=== PATIENT | male | born 1955 | race American Indian/Alaskan Native ===

== ENCOUNTER 2017-11-13 20:15 | Observation (INO) | payer OTHER, BC ==
[2017-11-13] MEDS ORDERED: ASPIRIN PO ONE (20:48)
[2017-11-13 20:59] LABS: Basophils # (Auto) 0.1 K/mm3 (0.0-0.1); Basophils % (Auto) 0.9 % (0.0-1.8); Eosinophils # (Auto) 0.1 K/mm3 (0.0-0.4); Eosinophils % (Auto) 1.2 % (0.0-4.3); Hematocrit 46.1 % (35.5-45.6); Hemoglobin 15.5 gm/dl (11.8-15.2); Lymphocytes # (Auto) 2.8 K/mm3 (1.2-5.4); Lymphocytes % (Auto) 44.3 % (13.4-35.0); Mean Corpuscular HGB Conc 34 % (32-34); Mean Corpuscular Hemoglobin 30 pg (28-32); Mean Corpuscular Volume 89 fl (84-94); Monocytes # (Auto) 0.6 K/mm3 (0.0-0.8); Monocytes % (Auto) 9.6 % (0.0-7.3); Platelet Count 213 K/mm3 (140-440); Red Blood Count 5.19 M/mm3 (3.65-5.03); Red Cell Distribution Width 14.6 % (13.2-15.2)
[2017-11-13 21:11] LABS: BUN/Creatinine Ratio 13; Blood Urea Nitrogen 10 mg/dL (9-20); Calcium 8.7 mg/dL (8.4-10.2); Hemolysis Index 14
--- NOTE | 2017-11-13 23:26 | XRay Report ---
FINAL REPORT PROCEDURE: XR CHEST ROUTINE 2V TECHNIQUE: PA and lateral chest radiographs were obtained. CPT 01631 HISTORY: SOB COMPARISON: No prior studies are available for comparison. FINDINGS: Heart: Normal. Mediastinum/Vessels: Normal. Lungs/Pleural space: Normal. Bony thorax: No acute osseous abnormality. Other: IMPRESSION: Normal examination.
[2017-11-14] MEDS: NITROSTAT SL PRN ×3 (03:50→04:04)
--- NOTE | 2017-11-14 04:07 | Emergency Department Report ---
ED Chest Pain HPI - General Chief Complaint: Chest Pain Stated Complaint: CP Time Seen by Provider: 11/14/17 03:16 Source: patient, family Mode of arrival: Ambulatory Limitations: No Limitations - History of Present Illness Initial Comments: 3 days of substernal chest pain. Intermittent. Exertional. Radiates down left arm. Feels lightheaded at times. It feels similar to his heart attack in December 2015. Patient has not had any recent cardiac testing. Former smoker. Multiple family members have had heart attacks. He last saw cardiology in July. He has 3 cardiac stents. Severity scale (0 -10): 10 - Related Data Previous Rx's Medication Instructions Recorded Last Taken Type Antacid [Alum-Mag Hydrox-Simeth 30 ml PO Q4H PRN #30 oral.liqd 01/17/16 Unknown Rx [id number]/[id number]] Aspirin [Aspirin TAB] 325 mg PO QDAY tablet 01/17/16 Unknown Rx AtorvaSTATin [Lipitor] 80 mg PO QHS #30 tablet 01/17/16 Unknown Rx Famotidine [Pepcid] 20 mg PO QDAY #30 tablet 01/17/16 Unknown Rx Lisinopril [Zestril TAB] 20 mg PO QDAY #30 tablet 01/17/16 Unknown Rx Metoprolol [Lopressor TAB] 25 mg PO BID #60 tablet 01/17/16 Unknown Rx Prasugrel [Effient] 10 mg PO QDAY #30 tablet 01/17/16 Unknown Rx Allergies Allergy/AdvReac Type Severity Reaction Status Date / Time No Known Allergies Allergy Unverified 01/15/16 12:28 Heart Score - HEART Score History: Moderately suspicious EKG: Normal Age: 45-65 Risk factors: > 3 risk factors or hx of atherosclerotic disease Troponin: < normal limit HEART Score: 4 ED Review of Systems ROS: Stated complaint: CP Other details as noted in HPI Comment: All other systems reviewed and negative Cardiovascular: chest pain ED Past Medical Hx - Past Medical History Previous Medical History?: Yes Hx Heart Attack/AMI: Yes Hx Congestive Heart Failure: No Hx Diabetes: No Hx Asthma: No Hx COPD: No Hx HIV: No - Surgical History Past Surgical History?: Yes Additional Surgical History: polyp removed, heart stents - Social History Smoking Status: Former Smoker Substance Use Type: Alcohol - Medications Home Medications: Home Medications Medication Instructions Recorded Confirmed Last Taken Type Antacid [Alum-Mag Hydrox-Simeth 30 ml PO Q4H PRN #30 oral.liqd 01/17/16 Unknown Rx [id number]/[id number]] Aspirin [Aspirin TAB] 325 mg PO QDAY tablet 01/17/16 Unknown Rx AtorvaSTATin [Lipitor] 80 mg PO QHS #30 tablet 01/17/16 Unknown Rx Famotidine [Pepcid] 20 mg PO QDAY #30 tablet 01/17/16 Unknown Rx Lisinopril [Zestril TAB] 20 mg PO QDAY #30 tablet 01/17/16 Unknown Rx Metoprolol [Lopressor TAB] 25 mg PO BID #60 tablet 01/17/16 Unknown Rx Prasugrel [Effient] 10 mg PO QDAY #30 tablet 01/17/16 Unknown Rx ED Physical Exam - General Limitations: No Limitations General appearance: alert, in no apparent distress - Head Head exam: Present: atraumatic, normocephalic - Eye Eye exam: Present: normal appearance - ENT ENT exam: Present: mucous membranes moist - Neck Neck exam: Present: normal inspection - Respiratory Respiratory exam: Present: normal lung sounds bilaterally. Absent: respiratory distress - Cardiovascular Cardiovascular Exam: Present: regular rate, normal rhythm. Absent: systolic murmur, diastolic murmur, rubs, gallop - GI/Abdominal GI/Abdominal exam: Present: soft, normal bowel sounds. Absent: distended, tenderness, guarding, rebound - Rectal Rectal exam: Present: deferred - Extremities Exam Extremities exam: Present: normal inspection. Absent: pedal edema - Back Exam Back exam: Present: normal inspection - Neurological Exam Neurological exam: Present: alert, oriented X3 - Psychiatric Psychiatric exam: Present: normal affect, normal mood - Skin Skin exam: Present: warm, dry, intact, normal color. Absent: rash ED Course Vital Signs 11/13/17 11/14/17 11/14/17 20:27 01:08 01:30 Temperature 98.6 F Pulse Rate 79 60 Respiratory 12 15 Rate Blood Pressure 143/78 124/76 O2 Sat by Pulse 96 98 97 Oximetry 11/14/17 11/14/17 11/14/17 02:00 02:30 03:00 Temperature Pulse Rate 64 60 65 Respiratory 12 19 20 Rate Blood Pressure 121/62 132/78 144/89 O2 Sat by Pulse 98 96 96 Oximetry 11/14/17 11/14/17 11/14/17 03:15 03:20 03:26 Temperature Pulse Rate 67 69 Respiratory 21 15 28 H Rate Blood Pressure 135/86 135/86 135/86 O2 Sat by Pulse 94 98 96 Oximetry 11/14/17 11/14/17 11/14/17 03:30 03:36 03:40 Temperature Pulse Rate 56 L 96 H Respiratory 16 27 H 27 H Rate Blood Pressure 141/98 141/98 141/98 O2 Sat by Pulse 98 98 99 Oximetry ED Medical Decision Making - Lab Data Result diagrams: 11/13/17 20:50 11/13/17 20:50 - EKG Data -: EKG Interpreted by [facility] EKG shows normal: sinus rhythm, axis, QRS complexes, ST-T waves Rate: normal - EKG Data Interpretation: no acute changes, other (1st degree heart block) - Radiology Data Radiology results: report reviewed, image reviewed - Medical Decision Making 62-year-old male with past medical history of CAD, hypertension that presents to the ER with chest pain. Vital signs are stable. Patient is well-appearing. EKG is nonischemic. Labwork is unremarkable. Moderate risk by heart score. Patient was given sublingual nitroglycerin 3, which resolved his chest pain. Patient will be admitted for further cardiac evaluation. Critical care attestation.: If time is entered above; I have spent that time in minutes in the direct care of this critically ill patient, excluding procedure time. ED Disposition Clinical Impression: Chest pain Disposition: 09 OP ADMIT IP TO THIS HOSP Is pt being admited?: Yes Does the pt Need Aspirin: No Condition: Stable Instructions: Chest Pain (ED) Referrals: PRIMARY CARE, [Primary Care Provider] - 3-5 Days
[2017-11-14] MEDS ORDERED: MORPHINE IV PRN (05:03)
[2017-11-14] MEDS ORDERED: TYLENOL PO PRN (05:04)
[2017-11-14] MEDS ORDERED: ZOFRAN IV PRN (05:04)
[2017-11-14] MEDS ORDERED: NITRO-BID 2% TP SCH (06:00)
--- NOTE | 2017-11-14 06:08 | History and Physical Report ---
CHIEF COMPLAINT: Chest pain. HISTORY OF PRESENT ILLNESS: The patient is a 62-year-old male who said he has been having chest pain in the substernal area going on for about 3 days. The pain radiated down his left arm and is associated with shortness of breath and lightheadedness. There is no history of nausea and vomiting. No history diaphoresis. There is also no history of cough or fever. The patient saw his electrical engineering technologist last July. PAST MEDICAL HISTORY: Pertinent for coronary artery disease status post myocardial infarction. PAST SURGICAL HISTORY: Polyp removal and cardiac stent placement. FAMILY HISTORY: Noncontributory. SOCIAL HISTORY: The patient is a former cigarette smoker, does not smoke currently, drinks alcohol and does not use illicit drugs. MEDICATIONS: The patient is on antacid liquid form 30 mL by mouth every 4 hours as needed for indigestion, aspirin 325 mg by mouth daily, Lipitor 80 mg by mouth at bedtime, Pepcid 20 mg by mouth daily, Zestril or lisinopril 20 mg by mouth daily, metoprolol 25 mg by mouth twice daily, Prasugrel or Effient 10 mg by mouth daily. ALLERGIES: There are no known drug allergies. REVIEW OF SYSTEMS: CONSTITUTIONAL: There are no fever, no chills, no diaphoresis. HEENT: There is no headache or sore throat. CARDIOVASCULAR: Chest pain is present. No orthopnea. RESPIRATORY SYSTEM: There is shortness of breath, but no cough. GASTROINTESTINAL SYSTEM: There is no nausea, no vomiting, no abdominal pain, diarrhea or constipation. NEUROLOGICAL: There is no numbness. There is dizziness with no altered mental status. MUSCULOSKELETAL: There is no joint pain or swelling. DERMATOLOGICAL: There is no skin rash or itching. GENITOURINARY: There is dysuria, hematuria or flank pain. Rest of system review is normal. PHYSICAL EXAMINATION: GENERAL: At the time of exam, the patient was found to be alert, oriented x 3 and not in acute distress. VITAL SIGNS: Shows temperature of 98.6 degrees Fahrenheit, pulse of 79, respirations 12, blood pressure 143/78, O2 sat of 96% on room air. HEENT: Shows pupils to be equal, round, reactive to light and accommodating. Extraocular muscles are intact. NECK: Supple with no JVD or carotid bruit. CARDIOVASCULAR: Showed normal first and second heart sounds with no gallops or murmur. RESPIRATORY SYSTEM: Show good air entry on both sides of the lungs with no abnormal breath sounds. GASTROINTESTINAL SYSTEM: Show abdomen to be full, soft, nontender with no organomegaly or rigidity. NEUROLOGIC: Shows no focal deficit. MUSCULOSKELETAL SYSTEM: Show no joint swelling or tenderness. DERMATOLOGICAL SYSTEM: No skin rash. GENITOURINARY: Showing no costovertebral angle tenderness. PERTINENT LABORATORY AND IMAGING STUDIES: The patient has CBC done with normal white count, elevated hemoglobin of 15.5 and elevated hematocrit of 46.1 with normal MCV. CBC differential showing elevated lymphocyte count of 44.3% and elevated monocyte count of 9.6% with normal segmented neutrophils. The patient's chemistry was unremarkable except for slightly elevated chloride level of 107.7. Troponin level came back normal. IMAGING STUDIES: The patient had chest x-ray done that was unremarkable. DIAGNOSES: Chest pain, rule out myocardial infarction. PLAN: 1. The patient will be admitted to telemetry. 2. The patient will have cardiac enzymes involving troponin, total CK and CK-MB checked q. 6 hours x 2 more levels. 3. The patient will remain n.p.o. this morning. 4. The patient will have Lexiscan stress test done this morning to rule out coronary artery disease. 5. The patient will be on aspirin 325 mg by mouth daily and will be on heparin 5000 units subcutaneous q, 12 hours for DVT prophylaxis. 6. The patient will be on morphine 2 mg IV every 5 minutes as needed for chest pain and will be on nitro paste one inch to anterior chest wall q.i.d. The patient will also be on nitroglycerin sublingual 0.4 mg every 5 minutes as needed for breakthrough chest pain and will be on IV Zofran 4 mg every 8 hours for nausea and vomiting and Tylenol 650 mg by mouth every 4 hours as needed for headache and fever. The patient will also be on oxygen by nasal cannula at 2 liter per minute and we will have a stress test done this morning to rule out coronary artery disease. JOB# [id number] OCN/NTS
[2017-11-14 08:09] LABS: Creatine Kinase MB 1.9 ng/mL (0.0-4.0)
[2017-11-14] MEDS: ASPIRIN PO SCH ×2 (09:34→10:00)
[2017-11-14] MEDS ORDERED: HEPARIN SUB-Q SCH (10:00)
--- NOTE | 2017-11-14 11:30 | Event Note ---
Date: 11/14/17 Stress MPI negative for ischemia. Patient may be discharged from a cardiac standpoint on Imdur 30mg daily. Follow up appointment with Dr. Andrade in the [place] office on 11/17/17 at 2: 00 pm.
[2017-11-14 13:00] VITALS: BP 134/94
--- NOTE | 2017-11-14 13:08 | Treadmill Report ---
TREADMILL PORTION NUCLEAR STRESS TEST The patient exercised on Nathan protocol for 7 minutes 30 seconds. Resting heart rate was 77, resting blood pressure sinus rhythm with RSR pattern in V1, nonspecific ST-T. The patient achieved 85% maximum heart rate. Peak heart rate is 134. Peak blood pressure was 178/75. The patient had no EKG changes suggestive of ischemia. The patient had some chest tightness at the end of stage 2 with no EKG changes. SUMMARY: 1. Negative treadmill EKG. 2. Fair exercise capacity, 7 minutes 30, seconds Nathan protocol. 3. No exaggerated blood pressure response to exercise. 4. The patient has some chest pressure at end of stage 2 of Nathan protocol that is relieved in recovery. Nuclear imaging pending. JOB# [id number] EDMUND/[place]
--- NOTE | 2017-11-14 13:11 | Treadmill Report ---
NUCLEAR PERFUSION STUDY REASON FOR STUDY: Chest pain. READING PHYSICIAN: Rojas Avalos MD IMAGING PROTOCOL: Single isotope used documented as single isotope protocol. IMAGING RESULTS: Normal cavity size from stress to rest. Normal distribution of radionuclide in anterior, inferior, septal, and apical regions. Gated SPECT, EF 57% with no wall motion abnormality. The patient exercised on Nathan protocol 7 minutes 30 seconds, exaggerated BP response to exercise, no EKG changes suggestive of ischemia. SUMMARY: 1. Negative treadmill EKG. 2. Fair exercise capacity, 7 minutes 30 seconds, Nathan protocol. 3. Exaggerated blood pressure response to exercise. 4. Normal rest and stress myocardial perfusion scan. No EKG changes suggestive of ischemia. No wall motion abnormality. Gated SPECT 57%. JOB# [id number] EDMUND/[place]
[2017-11-14 14:11] LABS: Creatine Kinase MB 2.2 ng/mL (0.0-4.0)
--- NOTE | 2017-11-14 15:42 | Discharge Summary ---
Providers - Providers Date of Admission: 11/14/17 05:12 Date of discharge: 11/14/17 Attending physician: JUANITA HANKINS Primary care physician: CASTING AGENT Hospitalization Condition: Stable Disposition: DC-30 STILL A PATIENT Time spent for discharge: 31 min Core Measure Documentation - Palliative Care Palliative Care/ Comfort Measures: Not Applicable - Core Measures Any of the following diagnoses?: none Exam - Constitutional Vitals: Temp Pulse Resp BP Pulse Ox 97.6 F 85 18 134/94 96 11/14/17 12:00 11/14/17 12:24 11/14/17 12:24 11/14/17 12:24 11/14/17 12:24 General appearance: Present: no acute distress, well-nourished - EENT Eyes: Present: PERRL, EOM intact - Neck Neck: Present: supple, normal ROM - Respiratory Respiratory effort: normal Respiratory: bilateral: diminished, negative: rales, rhonchi, wheezing - Cardiovascular Rhythm: regular Heart Sounds: Present: S1 & S2 - Extremities Extremities: no ischemia, No edema - Abdominal General gastrointestinal: Present: soft, non-tender, non-distended, normal bowel sounds - Integumentary Integumentary: Present: clear, warm - Musculoskeletal Musculoskeletal: strength equal bilaterally, generalized weakness - Psychiatric Psychiatric: appropriate mood/affect, cooperative - Neurologic Neurologic: CNII-XII intact, moves all extremities Plan Activity: no restrictions Diet: other (Cardiac diet) Additional Instructions: If you have chest pain or shortness of breath contact M.D. or go to emergency room Follow up with: LAMIN MILLER MD [Primary Care Provider] - 3-5 Days ODILON BHTAIA MD [Staff Physician] - 11/17/17 2:00 pm Prescriptions: ISOSORBIDE MONOnitrate [Imdur ER] 30 mg PO DAILY #30 tab.er.24h
--- NOTE | 2017-11-19 18:01 | Query- Chest Pain ---
Oleg Rasmussen__Cathie Date:__11/19/2017 Loss Prevention Guard/CDS:____Phuong/Antoine Phone#:__[phone] Exercise your independent professional judgment when responding to query. Questions asked do not imply a particular answer is desired or expected. We greatly appreciate your clarification on this issue. Clinical Documentation States: 62 Year old male was admitted on 11/14/2017 for 3 days of substernal chest pain. Intermittent. Exertional. Radiates down left arm. Feels lightheaded at times. It feels similar to his heart attack in December 2015. Patient has not had any recent cardiac testing. Former smoker. Multiple family members have had heart attacks. He last saw cardiology in July. He has 3 cardiac stents. ED Disposition Clinical Impression: Chest pain Please document the etiology of Chest Pain: [ ] Myocardial Infarction [ ] Pneumonia [ ] Mediastinitis [ ] Costochondritis [ ] Pulmonary Embolism [ ] Coronary Artery Disease [ ] GERD [ ] Other: [ ] Comment/Explanation: Present on Admission: [ ] Yes (Y) [ ] Clinically undeterminable (W) [ ] No(N) Please document response in your Progress Notes and/or Discharge Summary and indicate if the condition was present on admission. SHAMIR
== END 2017-11-14 17:05 | disposition home or self-care (01) ==
LOC: ED 20:15 → INTOOBSV 11-14 05:12 → 4A 11-14 05:12
PROVIDERS: ADMIT Internal Medicine; ATTEND Internal Medicine
DX: R07.2 Precordial pain (principal); I25.10 Atherosclerotic heart disease of native coronary artery without angina pectoris; I10 Essential (primary) hypertension; I25.2 Old myocardial infarction; Z95.5 Presence of coronary angioplasty implant and graft; Z87.891 Personal history of nicotine dependence; Z72.89 Other problems related to lifestyle; Z82.49 Family history of ischemic heart disease and other diseases of the circulatory system
CPT/HCPCS: 36415; 71046; 78452; 80048; 82550; 82553; 84484; 85025; 93005; 93010; 93017; 99285; A9502; G0378